=== PATIENT | female | born 1980 | race Two or more races ===

== ENCOUNTER 2022-08-12 10:55 | Emergency (ER) | payer BC, MEDICAID ==
[~2022-08-12] VITALS: Ht 160 cm; Wt 117.9 kg
[2022-08-12 11:02] VITALS: BP 147/105
[2022-08-12] MEDS ORDERED: KETOROLAC 15 MG/ML VIAL IM ONE (11:25)
--- NOTE | 2022-08-12 11:27 | NUR ---
Pt bibs after dental work at dentist. Pt may have swallowed a tooth but Dentist referred her to confirm it was not aspirated. Pt is a/ox 4, vss, no ss of acute distress, breathing equal and unlabored, speech clear, family at bedside. Pt aware of need for ua before toradol.
[2022-08-12 12:51] VITALS: BP 142/93
--- NOTE | 2022-08-12 12:53 | NUR ---
ACI given and reviewed with pt by assist RN. VSS, no ss of acute distress, breathing equal and unlaberod, speech clear, a/o x 4. Pt medicated prior to dc, tolerated well.
== END 2022-08-12 12:53 | disposition home or self-care (01) ==
LOC: MED 10:55
DX: T18.8XXA Foreign body in other parts of alimentary tract, initial encounter (principal); E11.9 Type 2 diabetes mellitus without complications; I10 Essential (primary) hypertension; Z79.4 Long term (current) use of insulin; Z79.899 Other long term (current) drug therapy; Z90.49 Acquired absence of other specified parts of digestive tract; X58.XXXA Exposure to other specified factors, initial encounter; Y93.89 Activity, other specified; Y92.89 Other specified places as the place of occurrence of the external cause; Y99.8 Other external cause status
CPT/HCPCS: 71045; 74018; 81025; 96372; 99284; J1885